=== PATIENT | male | born 1970 | race African-American/Black ===

== ENCOUNTER 2020-01-13 04:52 | Emergency (ER) | payer SELFPAY ==
[~2020-01-13] VITALS: Ht 172.7 cm; Wt 78.0 kg
[2020-01-13] MEDS ORDERED: LORAZEPAM 2MG/ML CPJ IM STA (06:14)
[2020-01-13] MEDS ORDERED: SODIUM CHLORIDE 0.9% 1,000 ML IV ONE (06:14)
[2020-01-13] MEDS ORDERED: HALOPERIDOL LACTATE 5MG/ML VIAL IM ONE (06:15)
[2020-01-13 07:40] VITALS: BP 124/81
== END 2020-01-13 09:00 | disposition left against medical advice (07) ==
LOC: ER 05:23
DX: F10.129 Alcohol abuse with intoxication, unspecified (principal); M25.552 Pain in left hip; M25.551 Pain in right hip; R10.9 Unspecified abdominal pain; R45.1 Restlessness and agitation; V98.8XXA Other specified transport accidents, initial encounter; Y93.89 Activity, other specified; Y92.89 Other specified places as the place of occurrence of the external cause; Y99.8 Other external cause status; Y90.9 Presence of alcohol in blood, level not specified
CPT/HCPCS: 93005; 99283; J7030